=== PATIENT | female | born 1995 | race Asian ===

== ENCOUNTER 2017-12-15 13:13 | Emergency (ER) | payer MEDICAID, OTHER ==
--- NOTE | 2017-12-15 13:21 | EDPHY ---
H & P Time Seen by Provider: 12/15/17 13:20 HPI/ROS: Chief complaint. First-time seizure HPI. 22-year-old female here by EMS after apparent first-time seizure. She tells me that she was working in the office and walking today she felt a little bit of tingling in her low abdomen and low back. She sat down and then everything went blurry. Per coworkers who talked with EMS she had a period of tonic-clonic seizure activity and then after this was somewhat postictal. She has had a recent UTI that was treated with 10 days of cephalexin. She is on control pills. She did not bite her tongue. No previous seizure. Denies chest pain or shortness of breath. No abdominal pain now. No recent illness or fever ROS Constitutional. no fever/chills, no weakness Eyes. no problems with vision ENT. no sore throat, no nasal drainage Cardiovascular. no chest pain Respiratory. no shortness of breath, no cough Abdominal. no abdominal pain, no nausea/vomiting, no diarrhea . no problems urinating MS. no calf pain/swelling, some low back discomfort for the last several days Skin. no rash Lymph. no swollen glands Neuro. Seizure Past Medical/Surgical History: Recent UTI Social History: Single, nonsmoker, no alcohol Smoking Status: Never smoked Physical Exam: General Appearance: Alert pleasant well-developed female mild distress. Vital signs are stable Eyes: Pupils equal and round no pallor or injection. ENT, Mouth: Mucous membranes are moist. Did not bite tongue Respiratory: There are no retractions, lungs are clear to auscultation. Cardiovascular: Regular rate and rhythm. Gastrointestinal: Abdomen is soft and nontender, no masses, bowel sounds normal. Neurological: Awake and alert, sensory and motor exams grossly normal. Skin: Warm and dry, no rashes. Musculoskeletal: Neck is supple nontender. Diffuse low back pain Extremities symmetrical, full range of motion. Psychiatric: Patient is oriented X 3, there is no agitation. Constitutional: Initial Vital Signs Temperature (C) 36.9 C 12/15/17 13:15 Heart Rate 79 12/15/17 13:15 Respiratory Rate 16 12/15/17 13:15 Blood Pressure 107/74 12/15/17 13:15 O2 Sat (%) 94 12/15/17 13:15 O2 Delivery Mode Room Air Allergies/Adverse Reactions: No Known Allergies Allergy (Unverified 12/15/17 13:37) Home Medications: Medication Instructions Recorded Bcp 12/15/17 Iron 12/15/17 Keflex 12/15/17 Medical Decision Making - Diagnostics Imaging Results: Imaging Impressions Head CT 12/15/17 13:32 Impression: Normal. Results called and discussed with Dr. Abilio López at 12/15/2017 14:22. Procedures: IV normal saline, monitor, seizure precautions ED Course/Re-evaluation: Re-evaluation 2:25 p.m.. Patient is stable. She is alert conversational. No further seizure activity. The patient and I discussed laboratory and imaging study results. 1 L of saline has been given still no urge to urinate. She is being given a 2nd L of saline Re-evaluation 5:30 p.m.. Patient is stable. She has had no further seizures. The patient and her mom and I discussed imaging and lab results. We discussed treatment plan including no driving or dangerous activity until cleared by neurologist. They express understanding and agreement Differential Diagnosis: 1st onset seizure-- I considered intracranial bleeding, toxicology, electrolyte abnormalities - Data Points Laboratory Results: Laboratory Results 12/15/17 13:20 12/15/17 13:20 12/15/17 12/15/17 12/15/17 16:55 13:20 13:20 WBC RBC Hgb Hct MCV MCH MCHC RDW Plt Count MPV Neut % (Auto) Lymph % (Auto) [place] % (Auto) Eos % (Auto) Baso % (Auto) Nucleat RBC Rel Count Absolute Neuts (auto) Absolute Lymphs (auto) Absolute Monos (auto) Absolute Eos (auto) Absolute Basos (auto) Absolute Nucleated RBC Immature Gran % Immature Gran # Sodium 144 mEq/L mEq/L (135-145) Potassium 4.2 mEq/L mEq/L (3.5-5.2) Chloride 105 mEq/L mEq/L (97-110) Carbon Dioxide 23 mEq/l mEq/l (22-31) Anion Gap 16 mEq/L mEq/L (8-16) BUN 16 mg/dL mg/dL (7-23) Creatinine 0.9 mg/dL mg/dL (0.6-1.0) Estimated GFR > 60 Glucose 108 mg/dL H mg/dL (70-100) Calcium 10.3 mg/dL mg/dL (8.5-10.4) Beta HCG, Qual NEGATIVE Urine Color PALE YELLOW Urine Appearance CLEAR Urine pH 6.0 (5.0-7.5) Ur Specific [place] 1.010 (1.002-1.030) Urine Protein NEGATIVE (NEGATIVE) Urine Ketones TRACE H (NEGATIVE) Urine Blood 2+ H (NEGATIVE) Urine Nitrate NEGATIVE (NEGATIVE) Urine Bilirubin NEGATIVE (NEGATIVE) Urine Urobilinogen NEGATIVE EU EU (0.2-1.0) Ur Leukocyte Esterase NEGATIVE (NEGATIVE) Urine RBC 5-10 /hpf H /hpf (0-3) Urine WBC 3-5 /hpf H /hpf (0-3) Ur Epithelial Cells TRACE /lpf /lpf (NONE-1+) Urine Bacteria TRACE /hpf H /hpf (NONE SEEN) Urine Mucus TRACE /lpf /lpf (NONE-1+) Urine Glucose NEGATIVE (NEGATIVE) Urine Opiates Screen NEGATIVE (NEGATIVE) Urine Barbiturates NEGATIVE (NEGATIVE) Ur Phencyclidine Scrn NEGATIVE (NEGATIVE) Ur Amphetamine Screen NEGATIVE (NEGATIVE) U Benzodiazepines Scrn NEGATIVE (NEGATIVE) Urine Cocaine Screen NEGATIVE (NEGATIVE) U Marijuana (THC) Screen NEGATIVE (NEGATIVE) 12/15/17 13:20 WBC 10.58 10^3/uL H 10^3/uL (3.80-9.50) RBC 4.92 10^6/uL 10^6/uL (4.18-5.33) Hgb 15.1 g/dL g/dL (12.6-16.3) Hct 44.0 % % (38.0-47.0) MCV 89.4 fL fL (81.5-99.8) MCH 30.7 pg pg (27.9-34.1) MCHC 34.3 g/dL g/dL (32.4-36.7) RDW 13.2 % % (11.5-15.2) Plt Count 240 10^3/uL 10^3/uL (150-400) MPV 10.1 fL fL (8.7-11.7) Neut % (Auto) 60.5 % % (39.3-74.2) Lymph % (Auto) 32.8 % % (15.0-45.0) [place] % (Auto) 4.7 % % (4.5-13.0) Eos % (Auto) 0.9 % % (0.6-7.6) Baso % (Auto) 0.5 % % (0.3-1.7) Nucleat RBC Rel Count 0.0 % % (0.0-0.2) Absolute Neuts (auto) 6.40 10^3/uL 10^3/uL (1.70-6.50) Absolute Lymphs (auto) 3.47 10^3/uL H 10^3/uL (1.00-3.00) Absolute Monos (auto) 0.50 10^3/uL 10^3/uL (0.30-0.80) Absolute Eos (auto) 0.10 10^3/uL 10^3/uL (0.03-0.40) Absolute Basos (auto) 0.05 10^3/uL 10^3/uL (0.02-0.10) Absolute Nucleated RBC 0.00 10^3/uL 10^3/uL (0-0.01) Immature Gran % 0.6 % % (0.0-1.1) Immature Gran # 0.06 10^3/uL 10^3/uL (0.00-0.10) Sodium Potassium Chloride Carbon Dioxide Anion Gap BUN Creatinine Estimated GFR Glucose Calcium Beta HCG, Qual Urine Color Urine Appearance Urine pH Ur Specific [place] Urine Protein Urine Ketones Urine Blood Urine Nitrate Urine Bilirubin Urine Urobilinogen Ur Leukocyte Esterase Urine RBC Urine WBC Ur Epithelial Cells Urine Bacteria Urine Mucus Urine Glucose Urine Opiates Screen Urine Barbiturates Ur Phencyclidine Scrn Ur Amphetamine Screen U Benzodiazepines Scrn Urine Cocaine Screen U Marijuana (THC) Screen Medications Given: Discontinued Medications Sodium Chloride (Ns) 1,000 mls @ 0 mls/hr IV ONCE ONE; Wide Open PRN Reason: Protocol Stop: 12/15/17 13:33 Last Admin: 12/15/17 14:08 Dose: 1,000 mls Departure - Departure Disposition: Home, Routine, Self-Care Clinical Impression: Seizure Condition: Good Instructions: Generalized Tonic Clonic Seizures (ED) Additional Instructions: No driving or other dangerous activity until further evaluation by neurologist. Regular meals and get regular sleep. Return for further seizures. Referrals: Patient,NotPresent [Unknown] - As per Instructions Kaleb Whiteside MD [Medical Doctor] - 5-7 days, call for appt.
[2017-12-15] MEDS ORDERED: NS 1,000 ML IV ONE (13:32)
[2017-12-15 13:37] LABS: PLATELET COUNT 240 10^3/uL (150-400)
--- NOTE | 2017-12-15 13:50 | CPEKG ---
Heart Rate: 70 RR Interval: 857 P-R Interval: 96 QRSD Interval: 70 QT Interval: 368 QTC Interval: 398 P [place]: 0 QRS [place]: 69 T Wave [place]: 43 EKG Severity - BORDERLINE ECG - EKG Impression: UNKNOWN RHYTHM, IRREGULAR RATE 57-88 EKG Impression: SHORT SD INTERVAL, ACCELERATED AV CONDUCTION Electronically Signed By: Abilio López 15-Dec-2017 21:34:19
[2017-12-15 18:06] VITALS: BP 122/65; PULSE 89; RESP 17; TEMP 97.5; O2SAT 94
== END 2017-12-15 18:18 | disposition home or self-care (01) ==
LOC: EDUNIT#
DX: R56.9 Unspecified convulsions (principal); E86.9 Volume depletion, unspecified
CPT/HCPCS: 80305

== ENCOUNTER 2018-03-02 18:41 | Emergency (ER) | payer OTHER ==
[2018-03-02] MEDS ORDERED: NS 1,000 ML IV ONE (19:07)
--- NOTE | 2018-03-02 19:07 | EDPHY ---
H & P Time Seen by Provider: 03/02/18 18:46 HPI/ROS: CHIEF COMPLAINT: Left flank pain HISTORY OF PRESENT ILLNESS: Patient 1st had symptoms in December of this year when she had sudden onset of tingling and pain in her left flank with hematuria and dysuria. She was seen and treated for urinary tract infection with antibiotics. Urine culture from 12/17/2017 grew multiple bacteria. Her symptoms resolved after treatment course of oral Keflex. Shortly after that she presented to our emergency department on December 15 with a first-time seizure. Since then she has had intermittent left flank pain and at least 1 episode of microscopic hematuria 3 weeks ago for which her primary care physician ordered a CT scan which is scheduled for March 06. Patient presents today with worsening left flank pain. She does not have yassine hematuria today. Left flank pain and tingling is not positional. She felt like it radiated around to the anterior abdomen. She is tearful and tells me that she is scared that she does not know what's going on. REVIEW OF SYSTEMS: Eye: no change in vision ENT: no sore throat Cardiac: no chest pain or syncope Pulmonary: no cough or SOB Abdomen: HPI no vomiting or diarrhea Musculoskeletal: HPI no injury or trauma sustained Skin: no rash Neuro: no headache, no weakness or numbness in legs, no incontinence Constitutional: no fever : HPI, no vaginal bleeding, denies A comprehensive 10 point review of systems is otherwise negative aside from elements mentioned in the history of present illness. PAST MEDICAL HISTORY: Negative except for HPI Social history: Nonsmoker, no drugs General Appearance: Alert and conversant, cooperative. Eyes: No scleral icterus. ENT, Mouth: Normal mucous membranes. Respiratory: Normal respiratory effort, breath sounds equal, lungs are clear to auscultation. Cardiovascular: Regular rate and rhythm. Gastrointestinal: Abdomen is soft and non tender. Specifically no lower abdominal tenderness and not tender over [place]Bur[place]'s point. Neurological: Alert, face symmetric, normal motor and sensory in extremities. Ambulatory. Skin: Warm and dry, no rashes. No evidence of zoster. Musculoskeletal: No CVA tenderness. Psychiatric: Not agitated. Mildly anxious, tearful when I walk into the room. Emergency Department course/MDM: 1943: test is negative, patient's CT scan will be performed today with IV contrast to evaluate for possible emergent causes for flank pain including but not limited to renal colic, intra-abdominal or renal mass, perinephric abscess. CT scanning discussed the patient and consented. 2013: Patient felt itchy and had some facial redness, felt some subjective shortness of breath but on exam does not have angioedema or wheezing. 50 mg IV Benadryl ordered, likely reaction to the IV contrast. CT scan abdomen and pelvis reported to me at this time by Dr. Praneeth Cadena as normal, results discussed with the patient. Warned: Likely has allergic reaction to contrast dye, must notify all future healthcare providers. 2024: Oral ibuprofen 600, urinalysis reviewed shows ketones only, no evidence of infection. Allergy symptoms resolved at this time. Differential discussed with the patient including but not limited to muscular, nerve, other soft tissue. I feel that we have reasonably evaluated her for emergent medical or surgical conditions, and she does not likely have one at this time. Smoking Status: Never smoked Constitutional: Initial Vital Signs Temperature (C) 36.9 C 03/02/18 18:51 Heart Rate 85 03/02/18 18:51 Respiratory Rate 18 03/02/18 18:51 Blood Pressure 115/75 03/02/18 18:51 O2 Sat (%) 97 03/02/18 18:51 O2 Delivery Mode Room Air Allergies/Adverse Reactions: Iodinated Contrast- Oral and IV Dye Allergy (Intermediate, Verified 03/02/18 20: 31) Dyspnea Home Medications: Medication Instructions Recorded Bcp 12/15/17 Medical Decision Making - Diagnostics Imaging Results: Imaging Impressions Abdomen CT 03/02/18 19:41 Impression: Normal CT examination of the abdomen and pelvis with contrast. Results called to Dr. Kan Youngblood at 8:10 PM. Imaging: Discussed imaging studies w/ at home independent call center agent Radiologist - Data Points Laboratory Results: Laboratory Results 03/02/18 19:15 03/02/18 19:15 03/02/18 03/02/18 03/02/18 20:15 19:15 19:15 WBC RBC Hgb Hct MCV MCH MCHC RDW Plt Count MPV Neut % (Auto) Lymph % (Auto) [place] % (Auto) Eos % (Auto) Baso % (Auto) Nucleat RBC Rel Count Absolute Neuts (auto) Absolute Lymphs (auto) Absolute Monos (auto) Absolute Eos (auto) Absolute Basos (auto) Absolute Nucleated RBC Immature Gran % Immature Gran # Sodium 139 mEq/L mEq/L (135-145) Potassium 3.7 mEq/L mEq/L (3.5-5.2) Chloride 104 mEq/L mEq/L (97-110) Carbon Dioxide 23 mEq/l mEq/l (22-31) Anion Gap 12 mEq/L mEq/L (8-16) BUN 15 mg/dL mg/dL (7-23) Creatinine 0.8 mg/dL mg/dL (0.6-1.0) Estimated GFR > 60 Glucose 93 mg/dL mg/dL (70-100) Calcium 9.8 mg/dL mg/dL (8.5-10.4) Beta HCG, Qual NEGATIVE Urine Color PALE YELLOW Urine Appearance CLEAR Urine pH 6.0 (5.0-7.5) Ur Specific [place] <= 1.005 (1.002-1.030) Urine Protein NEGATIVE (NEGATIVE) Urine Ketones TRACE H (NEGATIVE) Urine Blood NEGATIVE (NEGATIVE) Urine Nitrate NEGATIVE (NEGATIVE) Urine Bilirubin NEGATIVE (NEGATIVE) Urine Urobilinogen 0.2 EU EU (0.2-1.0) Ur Leukocyte Esterase NEGATIVE (NEGATIVE) Urine Glucose NEGATIVE (NEGATIVE) 03/02/18 19:15 WBC 5.53 10^3/uL 10^3/uL (3.80-9.50) RBC 4.92 10^6/uL 10^6/uL (4.18-5.33) Hgb 14.4 g/dL g/dL (12.6-16.3) Hct 43.6 % % (38.0-47.0) MCV 88.6 fL fL (81.5-99.8) MCH 29.3 pg pg (27.9-34.1) MCHC 33.0 g/dL g/dL (32.4-36.7) RDW 13.2 % % (11.5-15.2) Plt Count 201 10^3/uL 10^3/uL (150-400) MPV 9.9 fL fL (8.7-11.7) Neut % (Auto) 64.2 % % (39.3-74.2) Lymph % (Auto) 26.4 % % (15.0-45.0) [place] % (Auto) 7.2 % % (4.5-13.0) Eos % (Auto) 1.3 % % (0.6-7.6) Baso % (Auto) 0.7 % % (0.3-1.7) Nucleat RBC Rel Count 0.0 % % (0.0-0.2) Absolute Neuts (auto) 3.55 10^3/uL 10^3/uL (1.70-6.50) Absolute Lymphs (auto) 1.46 10^3/uL 10^3/uL (1.00-3.00) Absolute Monos (auto) 0.40 10^3/uL 10^3/uL (0.30-0.80) Absolute Eos (auto) 0.07 10^3/uL 10^3/uL (0.03-0.40) Absolute Basos (auto) 0.04 10^3/uL 10^3/uL (0.02-0.10) Absolute Nucleated RBC 0.00 10^3/uL 10^3/uL (0-0.01) Immature Gran % 0.2 % % (0.0-1.1) Immature Gran # 0.01 10^3/uL 10^3/uL (0.00-0.10) Sodium Potassium Chloride Carbon Dioxide Anion Gap BUN Creatinine Estimated GFR Glucose Calcium Beta HCG, Qual Urine Color Urine Appearance Urine pH Ur Specific [place] Urine Protein Urine Ketones Urine Blood Urine Nitrate Urine Bilirubin Urine Urobilinogen Ur Leukocyte Esterase Urine Glucose Medications Given: Discontinued Medications Diphenhydramine HCl (Benadryl Injection) 50 mg IVP EDNOW ONE Stop: 03/02/18 20:16 Last Admin: 03/02/18 20:17 Dose: 50 mg Sodium Chloride (Ns) 1,000 mls @ 0 mls/hr IV EDNOW ONE; Wide Open PRN Reason: Protocol Stop: 03/02/18 19:08 Last Admin: 03/02/18 19:25 Dose: 1,000 mls Ibuprofen (Motrin) 600 mg PO EDNOW ONE Stop: 03/02/18 20:25 Last Admin: 03/02/18 20:39 Dose: 600 mg Departure - Departure Disposition: Home, Routine, Self-Care Clinical Impression: Left flank pain Condition: Good Instructions: Flank Pain (ED) Additional Instructions: Normal CT scan; your PCP can access the report on the computer system. You are likely allergic to IV contrast dye; you need to tell any future health care providers about this. Benadryl 25mg by mouth every 8 hours for the next 2 days/48 hours. Referrals: Elizabeth Peters MD [Primary Care Provider] - As per Instructions
[2018-03-02 19:21] LABS: PLATELET COUNT 201 10^3/uL (150-400)
[2018-03-02] MEDS ORDERED: IOPAMIDOL (ISOVUE-300) 100 ML BTL ONE (19:44)
[2018-03-02 20:20] VITALS: BP 104/67
[2018-03-02] MEDS ORDERED: IBUPROFEN 600 MG TAB PO ONE (20:24)
[2018-03-02 20:43] VITALS: PULSE 92; RESP 16; TEMP 98.6; O2SAT 97
== END 2018-03-02 20:41 | disposition home or self-care (01) ==
LOC: CED 18:41
DX: R10.9 Unspecified abdominal pain (principal); E86.9 Volume depletion, unspecified
CPT/HCPCS: 74177-PO; 80048-PO; 81003-PO; 84703-PO; 85025-PO; 96374; J1200; Q9967

== ENCOUNTER → 2018-04-02 | Outpatient (CLI) | payer OTHER | LOC: CIMAGING 07:22 | PROVIDERS: ATTEND Family Medicine | DX: R10.9 Unspecified abdominal pain (principal); R93.421 Abnormal radiologic findings on diagnostic imaging of right kidney | CPT/HCPCS: 76705-PO ==

== ENCOUNTER → 2018-05-25 | Outpatient (CLI) | payer OTHER ==
[~2018-05-25] MED LIST: GADOBUTROL 10 ML VIAL IVP ONE
== END ==
LOC: FIMAGING 07:25
PROVIDERS: ATTEND Physician Assistant
DX: K76.89 Other specified diseases of liver (principal); D17.71 Benign lipomatous neoplasm of kidney; K59.00 Constipation, unspecified
CPT/HCPCS: A9585

== ENCOUNTER 2018-09-15 13:12 | Emergency (ER) | payer OTHER ==
--- NOTE | 2018-09-15 13:22 | EDPHY ---
H & P Stated Complaint: blood in urine and abd pain x 3 months Time Seen by Provider: 09/15/18 13:21 - Personal History LMP (Females 10-55): Over 28 Days Ago Current Tetanus Diphtheria and Acellular Pertussis (TDAP): Yes - Medical/Surgical History Hx Asthma: No Hx Chronic Respiratory Disease: No Hx Diabetes: No Hx Cardiac Disease: No Hx Renal Disease: No Hx Cirrhosis: No Hx Alcoholism: No Hx HIV/AIDS: No Hx Splenectomy or Spleen Trauma: No Other PMH: UTI - Social History Smoking Status: Never smoked Constitutional: Initial Vital Signs Temperature (C) 36.5 C 09/15/18 13:16 Heart Rate 87 09/15/18 13:16 Respiratory Rate 16 09/15/18 13:16 Blood Pressure 115/78 09/15/18 13:16 O2 Sat (%) 95 09/15/18 13:16 O2 Delivery Mode Room Air Allergies/Adverse Reactions: Iodinated Contrast- Oral and IV Dye Allergy (Intermediate, Verified 09/15/18 13: 19) Dyspnea Home Medications: Medication Instructions Recorded NK [No Known Home Meds] 09/15/18 Medical Decision Making ED Course/Re-evaluation: CHIEF COMPLAINT: HISTORY OF PRESENT ILLNESS: must have 4 elements: Location, Quality, Severity , Duration, Timing, Context, Modifying Factors, Associated Signs and Symptoms REVIEW OF SYSTEMS: A comprehensive 10 system review of systems is otherwise negative aside from elements mentioned in the history of present illness and medical decision making. PHYSICAL EXAM: HR, BP, O2 Sat, RR. Temp noted General Appearance: Alert, well hydrated, appropriate, and non-toxic appearing. Head: Atraumatic without scalp tenderness or obvious injury Eyes: Pupils equal, round, reactive to light and accommodation, EOMI, no trauma , no injection. Ears: Clear bilaterally, no perforation, normal landmarks Nose: Atraumatic, no rhinorrhea, clear. Throat: There is no erythema or exudates, no lesions, normal tonsils, mucus membranes moist. Neck: Supple, 2+ carotid upstroke, nontender, no lymphadenopathy. Respiratory: No retractions, no distress, no wheezes, and no accessory muscle use. Lungs are clear to auscultation bilaterally. Cardiovascular: Regular rate and rhythm, no murmurs, rubs, or gallops. Bilateral carotid, radial, dorsalis pedis, and posterior tibial pulses intact. Good capillary refill all extremities. Gastrointestinal: Abdomen is soft, nontender, non-distended, no masses, no rebound, no guarding, no peritoneal signs. Musculoskeletal: Normal active ROM of all extremities, atraumatic. Neurological: Alert, appropriate, and interactive. The patient has normal DTRs and non-focal cranial nerves, motor, sensory, and cerebellar exam. Skin: No rashes, good turgor, no nodules on palpation. Past medical history: Past surgical history: Family history: Social history: DIAGNOSTICS/PROCEDURES/CRITICAL CARE TIME: DIFFERENTIAL DIAGNOSIS: MEDICAL DECISION MAKING: Departure - Departure Referrals: Elizabeth Peters MD [Primary Care Provider] - As per Instructions
--- NOTE | 2018-09-15 13:25 | EDPHY ---
H & P Stated Complaint: blood in urine and abd pain x 3 months - Personal History LMP (Females 10-55): Over 28 Days Ago Current Tetanus Diphtheria and Acellular Pertussis (TDAP): Yes - Medical/Surgical History Hx Asthma: No Hx Chronic Respiratory Disease: No Hx Diabetes: No Hx Cardiac Disease: No Hx Renal Disease: No Hx Cirrhosis: No Hx Alcoholism: No Hx HIV/AIDS: No Hx Splenectomy or Spleen Trauma: No Other PMH: UTI - Social History Smoking Status: Never smoked Time Seen by Provider: 09/15/18 13:21 Constitutional: Initial Vital Signs Temperature (C) 36.5 C 09/15/18 13:16 Heart Rate 87 09/15/18 13:16 Respiratory Rate 16 09/15/18 13:16 Blood Pressure 115/78 09/15/18 13:16 O2 Sat (%) 95 09/15/18 13:16 O2 Delivery Mode Room Air Allergies/Adverse Reactions: Iodinated Contrast- Oral and IV Dye Allergy (Intermediate, Verified 09/15/18 13: 19) Dyspnea Home Medications: Medication Instructions Recorded Nitrofurantoin Monohyd/M-Cryst 100 mg PO BID #20 cap 09/15/18 [Nitrofurantoin Erath-Macrocrystal] Medical Decision Making ED Course/Re-evaluation: CHIEF COMPLAINT: Abdominal pain, hematuria HISTORY OF PRESENT ILLNESS: This patient is a 23 year old female complaining of abdominal pain and hematuria. She has similar symptoms several times since December. She reports history of UTIs associated with right flank pain and hematuria. She has been evaluated by gastroenterology in the past. She states that based on this workup , her symptoms were possibly related to pancreatitis or control side effect, but she has not had very conclusive results yet. She has never followed up with urology in the past. Today she noted blood in her urine again. She states this is not associated with her menstrual cycle and that she has not had a menstrual period in quite some time despite discontinuing her oral control. She is not currently taking any contraceptives. She denies possiility of and uses a barrier method for contraception. The patient has undergone US, CT, and MRI imaging within the past year which were all negative for acute processes. The patient denies fever, chest pain, shortness of breath, vomiting, dirrrhead, blood in her stool, or other associated symptoms. REVIEW OF SYSTEMS: A comprehensive 10 system review of systems is otherwise negative aside from elements mentioned in the history of present illness and medical decision making. PHYSICAL EXAM: HR, BP, O2 Sat, RR. Temp noted General Appearance: Alert, well hydrated, appropriate, and non-toxic appearing. Head: Atraumatic without scalp tenderness or obvious injury Eyes: Pupils equal, round, reactive to light and accommodation, EOMI, no trauma , no injection. Ears: Clear bilaterally, no perforation, normal landmarks Nose: Atraumatic, no rhinorrhea, clear. Throat: There is no erythema or exudates, no lesions, normal tonsils, mucus membranes moist. Neck: Supple, nontender, no lymphadenopathy. Respiratory: No retractions, no distress, no wheezes, and no accessory muscle use. Lungs are clear to auscultation bilaterally. Cardiovascular: Regular rate and rhythm. Good capillary refill all extremities. Gastrointestinal: Abdomen is soft, nontender, non-distended, no masses, no rebound, no guarding, no peritoneal signs. Musculoskeletal: Normal active ROM of all extremities, atraumatic. Neurological: Alert, appropriate, and interactive. Nonfocal neuro exam. Skin: No rashes, good turgor, no nodules on palpation. Past medical history: UTI. Past surgical history: Denies. Family history: Noncontributory. Social history: Employed. Lives in [place]. Does not abuse tobacco, drugs, or alcohol. DIFFERENTIAL DIAGNOSIS: The differential diagnosis for the patient's abdominal pain included but was not limited to ovarian cyst, pelvic inflammatory disease, ovarian torsion, urinary tract infection, ectopic , cholecystitis, and appendicitis. MEDICAL DECISION MAKIN23 y/o female presents with abdominal pain and hematuria. This has recurred several times since December and the patient has had multiple workups in the ED and in the outpatient setting. US, CT, and MRI imaging have been consistent and largely unremarkable. Discussed the risks, benefits, and utility of further imaging at this time. Plan for UA for initial evaluation. The patient declines further imaging at this time. If UA is negative for UTI, we will discharge with referral to urology. If positive, we will treat for UTI and recommend the patient still follow up with urology. 15:00 Care of this patient signed out to Dr. Joy at shift change pending UA results. (Emmanuel Allan) Other Provider: Received signout on patient from Dr. Allan, pending UA. UA positive for signs of UTI with some hematuria as well. Will start patient on Macrobid, culture urine and refer to Urology. Patient comfortable with plan for discharge home. (Leoncio Joy) - Data Points Laboratory Results: 09/15/18 14:50 Urine Color PALE YELLOW Urine Appearance HAZY Urine pH 6.0 (5.0-7.5) Ur Specific [place] 1.005 (1.002-1.030) Urine Protein NEGATIVE (NEGATIVE) Urine Ketones NEGATIVE (NEGATIVE) Urine Blood 3+ H (NEGATIVE) Urine Nitrate NEGATIVE (NEGATIVE) Urine Bilirubin NEGATIVE (NEGATIVE) Urine Urobilinogen NEGATIVE EU EU (0.2-1.0) Ur Leukocyte Esterase 2+ H (NEGATIVE) Urine RBC 25-50 /hpf H /hpf (0-3) Urine WBC 50-182 /hpf H /hpf (0-3) Ur Epithelial Cells TRACE /lpf /lpf (NONE-1+) Urine Bacteria TRACE /hpf H /hpf (NONE SEEN) Urine Mucus TRACE /lpf /lpf (NONE-1+) Urine Glucose NEGATIVE (NEGATIVE) Departure - Departure Disposition: Home, Routine, Self-Care Clinical Impression: Cystitis Condition: Good Instructions: Hematuria (ED) Additional Instructions: 1. Follow up with urology for further evaluation. We have referred you to our urologist [facility] consultant. 2. Return to the Emergency Department for fever, worsening pain, flank pain or failure to improve within 72 hours. Referrals: Elizabeth Peters MD [Primary Care Provider] - As per Instructions Anup Castelan MD [Medical Doctor] - As per Instructions Prescriptions: Nitrofurantoin Monohyd/M-Cryst [Nitrofurantoin Erath-Macrocrystal] 100 mg PO BID #20 cap Report Scribed for: Emmanuel Allan Report Scribed by: Soniya Guerin Date of Report: 09/15/18 Time of Report: 15:45
[2018-09-15 15:47] VITALS: BP 106/62
== END 2018-09-15 15:47 | disposition home or self-care (01) ==
DX: N30.91 Cystitis, unspecified with hematuria (principal); Z87.440 Personal history of urinary (tract) infections